=== PATIENT | female | born 1930 | race Two or more races ===

== ENCOUNTER 2019-09-12 17:27 | Inpatient (IN) | payer MEDICARE, MEDICAID ==
[~2019-09-12] VITALS: Ht 160 cm; Wt 68.5 kg
[2019-09-12] MEDS ORDERED: DIPH25CA83 PO (17:53)
[2019-09-12] MEDS ORDERED: BRIM5DRO3 EACHEYE (17:53)
[2019-09-12] MEDS ORDERED: DULO20CA PO (17:53)
[2019-09-12] MEDS ORDERED: CRAN450C PO (17:53)
[2019-09-12] MEDS ORDERED: GABA-534 PO (17:54)
[2019-09-12] MEDS ORDERED: NA P133E RC (17:54)
[2019-09-12] MEDS ORDERED: ONDA4TAB5 PO (17:54)
[2019-09-12] MEDS ORDERED: ACET-2154 PO (17:54)
[2019-09-12] MEDS ORDERED: TRAM50TA PO (17:54)
[2019-09-12] MEDS ORDERED: SITA50TA PO (17:54)
[2019-09-12] MEDS ORDERED: METF-442 PO (17:54)
[2019-09-12] MEDS ORDERED: POLY17PO4 PO (17:54)
[2019-09-12] MEDS ORDERED: TRAZ-214 PO (17:54)
[2019-09-12] MEDS ORDERED: MAGN400O6 PO (17:54)
[2019-09-12] MEDS ORDERED: INSU100V7 SQ (17:54)
[2019-09-12] MEDS ORDERED: METO25TA6 PO (17:54)
[2019-09-12 18:25] LABS: BASOPHILS # (AUTO) 0.1 K/uL (0.0-8.0); BASOPHILS % (AUTO) 0.8 % (0.0-2.0); EOSINOPHILS # (AUTO) 0.1 K/uL (0.0-0.7); EOSINOPHILS % (AUTO) 0.9 % (0.0-7.0); HEMATOCRIT 42.9 % (31.2-41.9); HEMOGLOBIN 13.9 g/dL (10.9-14.3); LYMPHOCYTES # (AUTO) 1.9 K/uL (20.0-40.0); LYMPHOCYTES % (AUTO) 29.1 % (20.5-51.5); MEAN CORPUSCULAR HEMOGLOBIN 26.3 uug (24.7-32.8); MEAN CORPUSCULAR HGB CONC 32 g/dL (32.3-35.6); MEAN CORPUSCULAR VOLUME 81.3 fL (75.5-95.3); MONOCYTES # (AUTO) 0.5 K/uL (2.0-10.0); MONOCYTES % (AUTO) 7.5 % (0.0-11.0); NEUTROPHILS % (AUTO) 61.7 % (38.5-71.5); PLATELET COUNT (AUTO) 201 K/uL (179-408); RED BLOOD CELL COUNT(AUTO) 5.28 MIL/uL (3.63-4.92); WHITE BLOOD COUNT (AUTO) 6.4 K/uL (3.8-11.8)
[2019-09-12 18:33] LABS: CARBON DIOXIDE 29 mmol/L (21-32); CHLORIDE 100 mmol/L (98-107); CREATININE 0.9 mg/dL (0.6-1.3); GLUCOSE 278 mg/dL (74-106); POTASSIUM 3.6 mmol/L (3.5-5.1); UREA NITROGEN, BLOOD 10 mg/dL (7-18)
[2019-09-12 18:45] LABS: ETHANOL < 3 MG/DL (0-0)
[2019-09-12 18:47] LABS: ACETAMINOPHEN < 2.0 ug/mL (10-30); ALANINE AMINOTRANSFERASE 11 U/L (14-59); ALKALINE PHOSPHATASE 92 U/L (50-136); ASPARTATE AMINOTRANSFERASE 8 U/L (15-37); BILIRUBIN,DIRECT 0.1 mg/dL (0.0-0.2); BILIRUBIN,TOTAL 0.3 mg/dL (0.2-1.0); TOTAL PROTEIN, SERUM 7.1 g/dL (6.4-8.2)
[2019-09-12 18:59] LABS: THYROID STIMULATING HORMONE 2.299 mIU/mL (0.358-3.740)
--- NOTE | 2019-09-12 19:50 | NUR ---
Pt. admitted to [facility] , under care of Dr. SULLIVAN/JOHN Belongs List completed.
--- NOTE | 2019-09-12 19:57 | NUR ---
REPORT GIVEN TO HÉCTOR CASAS.
[2019-09-12 21:00] VITALS: BP 141/83
[2019-09-12] MEDS ORDERED: MAGNESIUM HYDROXIDE 30 ML LIQUID UDC PO PRN ×2 (21:15→21:30)
[2019-09-12] MEDS ORDERED: FLEET ENEMA 133 ML BOTTLE RC PRN (21:30)
[2019-09-12] MEDS ORDERED: ACETAMINOPHEN 325 MG TABLET PO PRN (21:30)
[2019-09-12] MEDS: TEMAZEPAM 7.5 MG CAPSULE PO PRN (22:02)
[2019-09-13] MEDS: LORAZEPAM 0.5 MG TABLET PO PRN ×4 (00:20→20:23)
--- NOTE | 2019-09-13 01:27 | NUR ---
received to care, at 2044, from the emergency room, on a 72 hour hold for gravely disabled, a transfer from [facility]. according to the hold, she had become verbally aggressive towards peers and staff, and had to be moved to an non shared room, due to increased confusion, agitation, and threatening language. she had been refusing all her medications, and was paranoid that staff were conspiring against her. she has resided there for the last 2 years, and had only recently began to exhibit these behaviors, including refusing medications, and becoming aggressive. upon arrival on the unit, she was anxious, and confused. had no insight regarding her condition, or situation. stated she was here because "they stole my stuff". she was unable to provide history, or any meaningful information. she was given PRN restoril for insomnia, at 2201, but she refused to stay in bed, sitting in the josue chair at the nurses station. PRN ativan was given at 0. as of , she remains awake, and agitated. needs frequent redirection. will continue to monitor closely
[2019-09-13] MEDS: ONDANSETRON HCL 4 MG TABLET PO PRN (06:03)
--- NOTE | 2019-09-13 06:59 | NUR ---
pt did not sleep last night. was assisted to bed 3 times, but climbed out each time. assisted with am care, including shower. currently up in josue chair. no distress noted.
[2019-09-13 07:30] VITALS: BP 142/61
[2019-09-13] MEDS ORDERED: METFORMIN HCL 500 MG TABLET PO SCH (08:00)
[2019-09-13] MEDS: METOPROLOL TARTRATE 25 MG TABLET PO SCH ×2 (08:39→16:40)
[2019-09-13] MEDS ORDERED: Medication Not On Formulary EA (Sitagliptin Phosphate (Januvia) 50 MG) PO SCH (09:00)
[2019-09-13] MEDS: LINAGLIPTIN 5 MG TABLET PO SCH (10:04)
[2019-09-13] MEDS: ACETAMINOPHEN 325 MG TABLET PO PRN (11:25)
[2019-09-13] MEDS ORDERED: DEXTROSE 50% 50 ML DISP.SYRIN IV PRN (13:30)
[2019-09-13] MEDS: TRAMADOL HCL 50 MG TABLET PO PRN (13:47)
--- NOTE | 2019-09-13 15:29 | NUR ---
Gps/De Alcoholizer- Remains up on her josue-chair for safety,unsteady gait, patient wants to get back to bed, but noted pt. kept getting up, potential for fall, forgetful/confused , poor safety awareness.Continue to monitor closely for safety.
--- NOTE | 2019-09-13 16:29 | NUR ---
Initial Discharge Note Patient currently resides at [facility] ([address], [place] [address]; ). Patient will return to facility after discharge. JOHANNA Bell and Myke have been made aware and agreeable with plans. dish room worker will continue to work with patient, family, and MD to ensure a safe and proper discharge plan.
[2019-09-13 16:31] VITALS: BP 150/79
[2019-09-13] MEDS: BLOOD SUGAR DIAGNOSTIC 1 EACH STRIP VI SCH ×2 (16:38→20:07)
[2019-09-13] MEDS: INSULIN REGULAR, HUMAN 300 UNIT/3 ML VIAL SQ PRN ×2 (16:50→20:35)
[2019-09-13] MEDS: DIVALPROEX SPRINKLE 125 MG CAP.SPRINK PO SCH ×2 (17:09→21:29)
[2019-09-13] MEDS: BRIMONIDINE 0.2% OPHT DROP 10 ML BOTTLE EACHEYE SCH (17:10)
[2019-09-13] MEDS ORDERED: BRIMONIDINE-P 0.1% OPHTH DROP 5 ML DROPS EACHEYE SCH (18:00)
[2019-09-13 21:00] VITALS: BP 121/68
[2019-09-13] MEDS ORDERED: INSULIN GLARGINE,HUM 300 UNITS/3 ML CARTRIDGE SQ SCH (21:00)
[2019-09-13] MEDS: MIRALAX 17 GM POWD.PACK PO SCH (21:00)
--- NOTE | 2019-09-13 22:00 | NUR ---
received to care, up in josue chair, talking to self, restless, but pleasant upon approach. PRN ativan was given at 2022. as of 2199, she remains restless, but calmer. does not want to go to bed. no distress noted. will continue to monitor closely.
[2019-09-13] MEDS: TEMAZEPAM 7.5 MG CAPSULE PO PRN (23:02)
--- NOTE | 2019-09-13 23:02 | NUR ---
remains awake and restless. PRN restoril was given.
--- NOTE | 2019-09-14 00:30 | NUR ---
appears to be asleep. no distress noted.
--- NOTE | 2019-09-14 06:00 | NUR ---
slept 7.25 hours. continues to sleep. no distress noted.
[2019-09-14] MEDS: BLOOD SUGAR DIAGNOSTIC 1 EACH STRIP VI SCH ×4 (06:25→20:13)
[2019-09-14 07:30] VITALS: BP 127/70
[2019-09-14] MEDS: INSULIN REGULAR, HUMAN 300 UNIT/3 ML VIAL SQ PRN ×4 (08:12→20:25)
[2019-09-14] MEDS: LINAGLIPTIN 5 MG TABLET PO SCH (08:19)
[2019-09-14] MEDS: METOPROLOL TARTRATE 25 MG TABLET PO SCH ×2 (08:19→16:27)
[2019-09-14] MEDS: DIVALPROEX SPRINKLE 125 MG CAP.SPRINK PO SCH ×3 (08:19→20:24)
[2019-09-14] MEDS: GABAPENTIN 300 MG CAPSULE PO SCH ×2 (08:19→16:27)
--- NOTE | 2019-09-14 12:05 | NUR ---
Gps/Brush Maker- Stayed up on her josue-chair by the Nurses station . Safety reviewed and emphasized. Compliant with routine meds.safety reviewed and emphasized.
--- NOTE | 2019-09-14 14:01 | NUR ---
Gps/Breaker Operator- Timur Adler DNP in to see patient, informed of elevated blood sugar results /accu checks results , reviewed insulin orders.
--- NOTE | 2019-09-14 14:53 | NUR ---
FIREARMS REPORT: Fleet Driver completed and submitted a [employer] firearms report for 5150 grave disability certification. A copy of report has been placed in patient chart.
--- NOTE | 2019-09-14 15:59 | NUR ---
Gps/Senior International Tax Manager- Toileted , UA obtained, sent to lab.Episodes of bladder incontinence, wears diaper.
[2019-09-14] MEDS: BRIMONIDINE 0.2% OPHT DROP 10 ML BOTTLE EACHEYE SCH (16:27)
[2019-09-14 17:06] VITALS: BP 126/82
[2019-09-14 17:53] LABS: *BILIRUBIN,URIN NEGATIVE (NEGATIVE); *BLOOD, URINE NEGATIVE (NEGATIVE); *COLOR,URINE LIGHT YELLOW (YELLOW); *KETONES,URINE NEGATIVE (NEGATIVE); *UROBILINOGEN,URINE 0.2 E.U./dl (NORMAL); LEUKOCYTE ESTERASE ,URINE NEGATIVE (NEGATIVE); NITRITE, URINE NEGATIVE (NEGATIVE); PH,URINE 6.5 (5.0-8.0); UGLUCOSE NEGATIVE (NEGATIVE)
[2019-09-14 18:47] LABS: *CLARITY,URINE HAZY (CLEAR)
[2019-09-14 18:49] LABS: BACTERIA,URINE FEW /HPF (NONE SEEN); SQUAMOUS EPITHELIAL CELL,UR MODERATE /HPF (NONE SEEN); WBC,URINE 0-3 /HPF (0-3)
[2019-09-14 18:50] LABS: YEAST,URINE FEW /HPF (NONE SEEN)
[2019-09-14 20:15] VITALS: BP 124/64
[2019-09-14] MEDS: MIRALAX 17 GM POWD.PACK PO SCH (20:24)
[2019-09-14] MEDS: INSULIN GLARGINE,HUM 300 UNITS/3 ML CARTRIDGE SQ SCH (20:27)
[2019-09-14] MEDS: TEMAZEPAM 7.5 MG CAPSULE PO PRN (22:39)
[2019-09-14] MEDS: LORAZEPAM 0.5 MG TABLET PO PRN (23:45)
[2019-09-15] MEDS: TRAMADOL HCL 50 MG TABLET PO PRN (00:54)
[2019-09-15] MEDS: ONDANSETRON HCL 4 MG TABLET PO PRN (00:54)
[2019-09-15] MEDS: BLOOD SUGAR DIAGNOSTIC 1 EACH STRIP VI SCH ×4 (06:33→20:50)
[2019-09-15 07:30] VITALS: BP 114/63
[2019-09-15] MEDS: LORAZEPAM 0.5 MG TABLET PO PRN (08:29)
[2019-09-15] MEDS: METOPROLOL TARTRATE 25 MG TABLET PO SCH ×2 (08:29→17:09)
[2019-09-15] MEDS: LINAGLIPTIN 5 MG TABLET PO SCH (08:29)
[2019-09-15] MEDS: GABAPENTIN 300 MG CAPSULE PO SCH ×2 (08:29→17:09)
[2019-09-15] MEDS: DIVALPROEX SPRINKLE 125 MG CAP.SPRINK PO SCH ×3 (08:29→20:47)
[2019-09-15] MEDS: INSULIN REGULAR, HUMAN 300 UNIT/3 ML VIAL SQ PRN ×3 (09:04→17:40)
[2019-09-15 11:48] LABS: BASOPHILS # (AUTO) 0.1 K/uL (0.0-8.0); BASOPHILS % (AUTO) 0.7 % (0.0-2.0); EOSINOPHILS # (AUTO) 0.2 K/uL (0.0-0.7); EOSINOPHILS % (AUTO) 2.1 % (0.0-7.0); HEMATOCRIT 43.9 % (31.2-41.9); HEMOGLOBIN 13.7 g/dL (10.9-14.3); LYMPHOCYTES # (AUTO) 1.8 K/uL (20.0-40.0); LYMPHOCYTES % (AUTO) 22.8 % (20.5-51.5); MEAN CORPUSCULAR HEMOGLOBIN 25.7 uug (24.7-32.8); MEAN CORPUSCULAR HGB CONC 31 g/dL (32.3-35.6); MEAN CORPUSCULAR VOLUME 82.3 fL (75.5-95.3); MONOCYTES # (AUTO) 0.8 K/uL (2.0-10.0); MONOCYTES % (AUTO) 9.8 % (0.0-11.0); NEUTROPHILS % (AUTO) 64.6 % (38.5-71.5); PLATELET COUNT (AUTO) 208 K/uL (179-408); RED BLOOD CELL COUNT(AUTO) 5.33 MIL/uL (3.63-4.92); WHITE BLOOD COUNT (AUTO) 7.8 K/uL (3.8-11.8)
[2019-09-15 12:05] LABS: BILIRUBIN,TOTAL 0.3 mg/dL (0.2-1.0); CREATININE 1.1 mg/dL (0.6-1.3); POTASSIUM 4.1 mmol/L (3.5-5.1); TOTAL PROTEIN, SERUM 6.9 g/dL (6.4-8.2)
[2019-09-15 16:00] VITALS: BP 121/70
[2019-09-15] MEDS: BRIMONIDINE 0.2% OPHT DROP 10 ML BOTTLE EACHEYE SCH (17:10)
[2019-09-15 20:28] VITALS: BP 129/65
[2019-09-15] MEDS: QUETIAPINE FUMARATE 25 MG TABLET PO SCH (20:47)
[2019-09-15] MEDS: MIRALAX 17 GM POWD.PACK PO SCH (20:50)
[2019-09-15] MEDS: INSULIN REGULAR, HUMAN 300 UNITS/3 ML VIAL SQ PRN (21:00)
[2019-09-15] MEDS: INSULIN GLARGINE,HUM 300 UNITS/3 ML CARTRIDGE SQ SCH (21:08)
[2019-09-15] MEDS: TEMAZEPAM 7.5 MG CAPSULE PO PRN (22:04)
[2019-09-16] MEDS: TRAMADOL HCL 50 MG TABLET PO PRN (01:15)
[2019-09-16] MEDS: BLOOD SUGAR DIAGNOSTIC 1 EACH STRIP VI SCH ×4 (06:35→20:14)
[2019-09-16 08:29] VITALS: BP 113/63
[2019-09-16] MEDS: GABAPENTIN 300 MG CAPSULE PO SCH ×2 (10:02→17:07)
[2019-09-16] MEDS: DIVALPROEX SPRINKLE 125 MG CAP.SPRINK PO SCH ×3 (10:02→20:13)
[2019-09-16] MEDS: METOPROLOL TARTRATE 25 MG TABLET PO SCH ×2 (10:03→17:07)
[2019-09-16] MEDS: LINAGLIPTIN 5 MG TABLET PO SCH (10:03)
[2019-09-16] MEDS: INSULIN REGULAR, HUMAN 300 UNIT/3 ML VIAL SQ PRN ×2 (12:11→17:20)
[2019-09-16] MEDS: BRIMONIDINE 0.2% OPHT DROP 10 ML BOTTLE EACHEYE SCH (17:08)
[2019-09-16 18:18] VITALS: BP 133/72
--- NOTE | 2019-09-16 20:00 | NUR ---
RECEIVED PATIENT IN HER ROOM SITTING IN HER BED. SHE IS NOTED A/O X 1, FORGETFUL. SHE IS NOTED CALM UPON APPROACHED. CONTINUE WITH IMPAIRED INSIGHT AND JUDGMENT INTO HER ADMISSION TO [facility]. V/S STABLE AT THIS TIME. ACCU CHECK 213 QHS. PATIENT WAS GIVEN SNACKS. PATIENT IS REASSURED FOR HER SAFETY. SAFETY AND FALL PRECAUTION IN PLACE. WILL CONTINUE TO MONITOR,
[2019-09-16 20:13] VITALS: BP 136/77
[2019-09-16] MEDS: QUETIAPINE FUMARATE 25 MG TABLET PO SCH (20:13)
[2019-09-16] MEDS: MIRALAX 17 GM POWD.PACK PO SCH (20:13)
[2019-09-16 20:51] LABS: *BILIRUBIN,URIN NEGATIVE (NEGATIVE); *BLOOD, URINE NEGATIVE (NEGATIVE); *CLARITY,URINE CLEAR (CLEAR); *COLOR,URINE YELLOW (YELLOW); *KETONES,URINE NEGATIVE (NEGATIVE); *UROBILINOGEN,URINE 0.2 E.U./dl (NORMAL); LEUKOCYTE ESTERASE ,URINE NEGATIVE (NEGATIVE); NITRITE, URINE NEGATIVE (NEGATIVE); PH,URINE 7.5 (5.0-8.0); UGLUCOSE NEGATIVE (NEGATIVE)
[2019-09-16] MEDS: ONDANSETRON HCL 4 MG TABLET PO PRN (21:07)
--- NOTE | 2019-09-16 21:10 | NUR ---
PATIENT NOTED IRRITABLE, DEMANDING, HYPERVERBAL. SHE IS SOMEWHAT REDIRECTABLE. PATIENT ALSO C/O NAUSEA WITHOUT VOMITING. ZOFRAN 4MG PO PRN WAS GIVEN. UA WAS SENT OUT TO LAB TO R/O UTI. WILL CONTINUE TO MONITOR.
[2019-09-16] MEDS: INSULIN REGULAR, HUMAN 300 UNITS/3 ML VIAL SQ PRN (21:24)
[2019-09-16] MEDS: INSULIN GLARGINE,HUM 300 UNITS/3 ML CARTRIDGE SQ SCH (21:28)
--- NOTE | 2019-09-16 21:52 | NUR ---
UA WAS OBTAINED AND SENT OUT FOR URINALYSIS AND C/S. URINALYSIS IS NEGATIVE. WILL CONTINUE TO MONITOR.
[2019-09-16] MEDS: TEMAZEPAM 7.5 MG CAPSULE PO PRN (22:57)
--- NOTE | 2019-09-16 23:02 | NUR ---
PT CONTINUE HYPERVERBAL, EASILY IRRITABLE, SHE IS REFUSING TO STAY IN BED. TEMAZEPAM 7.5 MG PO PRN WAS GIVEN. WILL CONTINUE TO MONITOR.
[2019-09-16] MEDS ORDERED: OLANZAPINE 10 MG VIAL IM ONE (23:45)
--- NOTE | 2019-09-17 00:20 | NUR ---
PT CONTINUE IRRITABLE, YELLING, BELLIGERENT and RESTLESS. SHE WAS ALSO NOTED VERBALLY AND PHYSICALLY ABUSIVE: HITTING STAFF WHILE TRYING TO PROVIDE CARE AND ADLs CALLING NAMES. STAFF, INCLUDING THIS COVER SEAMER ATTEMPTED TO REDIRECT PATIENT; HOWEVER, INEFFECTIVE. PT WAS UNABLE TO CFS. DR SULLIVAN WAS NOTIFY AND NEW ORDER OBTAINED TO ADMINISTER ZYPREXA 3MG IM ONE TIME ORDER. ORDER WAS NOTED AND CARRIED OUT. WILL CONTINUE TO MONITOR.
--- NOTE | 2019-09-17 01:20 | NUR ---
PATIENT NOTED LESS RESTLESS, LESS AGGRESSIVE HOWEVER, SHE CONTINUE VERBALLY ABUSIVE AND UNABLE TO CFS. WE WILL CONTINUE TO MONITOR.
--- NOTE | 2019-09-17 01:45 | NUR ---
PT IS NOW IN HER BED SLEEPING COMFORTABLE. WILL CONTINUE TO MONITOR,
[2019-09-17] MEDS: BLOOD SUGAR DIAGNOSTIC 1 EACH STRIP VI SCH ×4 (06:37→20:21)
--- NOTE | 2019-09-17 06:45 | NUR ---
PATIENT WAS ABLE TO SLEEP FOR APPROX 2HRS THROUGH THE NIGHT. SHE IS NOTED CALM AND COOPERATIVE AT THIS TIME. SHE CONTINUE SLEEPING IN HER BED. ACCU CHECK IS 187. WILL CONINUE TO MONITOR.
[2019-09-17 07:30] VITALS: BP 115/50
[2019-09-17] MEDS: LORAZEPAM 0.5 MG TABLET PO PRN ×2 (08:07→21:24)
[2019-09-17] MEDS: DIVALPROEX SPRINKLE 125 MG CAP.SPRINK PO SCH (08:36)
[2019-09-17] MEDS: GABAPENTIN 300 MG CAPSULE PO SCH ×2 (08:36→16:45)
[2019-09-17] MEDS: METOPROLOL TARTRATE 25 MG TABLET PO SCH ×2 (08:36→16:46)
[2019-09-17] MEDS: LINAGLIPTIN 5 MG TABLET PO SCH (08:38)
[2019-09-17] MEDS: INSULIN REGULAR, HUMAN 300 UNIT/3 ML VIAL SQ PRN ×2 (09:03→16:49)
[2019-09-17] MEDS ORDERED: OLANZAPINE 2.5 MG TABLET PO PRN (12:15)
[2019-09-17 12:49] LABS: BASOPHILS % (AUTO) 0.4 % (0.0-2.0); EOSINOPHILS # (AUTO) 0.1 K/uL (0.0-0.7); EOSINOPHILS % (AUTO) 1.6 % (0.0-7.0); HEMATOCRIT 43.8 % (31.2-41.9); HEMOGLOBIN 13.9 g/dL (10.9-14.3); LYMPHOCYTES # (AUTO) 1.6 K/uL (20.0-40.0); LYMPHOCYTES % (AUTO) 17.6 % (20.5-51.5); MEAN CORPUSCULAR HEMOGLOBIN 25.7 uug (24.7-32.8); MEAN CORPUSCULAR HGB CONC 32 g/dL (32.3-35.6); MEAN CORPUSCULAR VOLUME 81.1 fL (75.5-95.3); MONOCYTES # (AUTO) 0.8 K/uL (2.0-10.0); MONOCYTES % (AUTO) 8.8 % (0.0-11.0); NEUTROPHILS # (AUTO) 6.6 K/uL (1.8-8.9); NEUTROPHILS % (AUTO) 71.6 % (38.5-71.5); PLATELET COUNT (AUTO) 222 K/uL (179-408); WHITE BLOOD COUNT (AUTO) 9.3 K/uL (3.8-11.8)
[2019-09-17 12:53] LABS: CREATININE 0.9 mg/dL (0.6-1.3); POTASSIUM 4.4 mmol/L (3.5-5.1)
[2019-09-17 12:58] LABS: BILIRUBIN,TOTAL 0.3 mg/dL (0.2-1.0); TOTAL PROTEIN, SERUM 6.6 g/dL (6.4-8.2)
[2019-09-17 15:37] VITALS: BP 111/64
[2019-09-17] MEDS: OLANZAPINE 2.5 MG TABLET PO SCH (16:45)
[2019-09-17] MEDS: BRIMONIDINE 0.2% OPHT DROP 10 ML BOTTLE EACHEYE SCH (17:12)
[2019-09-17] MEDS: MAG HYDROX/AL HYDROX/SIMETH 30 ML LIQUID UDC PO PRN (18:35)
[2019-09-17 20:00] VITALS: BP 131/65
[2019-09-17] MEDS ORDERED: OLANZAPINE 2.5 MG TABLET PO SCH (20:00)
[2019-09-17] MEDS: TRAMADOL HCL 50 MG TABLET PO PRN (20:07)
[2019-09-17] MEDS: MIRALAX 17 GM POWD.PACK PO SCH (20:14)
[2019-09-17] MEDS: INSULIN GLARGINE,HUM 300 UNITS/3 ML CARTRIDGE SQ SCH (20:21)
[2019-09-17] MEDS: INSULIN REGULAR, HUMAN 300 UNITS/3 ML VIAL SQ PRN (20:23)
[2019-09-17] MEDS: TEMAZEPAM 7.5 MG CAPSULE PO PRN (23:10)
[2019-09-18] MEDS: BLOOD SUGAR DIAGNOSTIC 1 EACH STRIP VI SCH ×4 (06:40→20:44)
[2019-09-18 07:30] VITALS: BP 144/79
[2019-09-18] MEDS: GABAPENTIN 300 MG CAPSULE PO SCH ×2 (09:04→17:19)
[2019-09-18] MEDS: METOPROLOL TARTRATE 25 MG TABLET PO SCH ×2 (09:05→17:19)
[2019-09-18] MEDS: LINAGLIPTIN 5 MG TABLET PO SCH (09:05)
[2019-09-18] MEDS: OLANZAPINE 2.5 MG TABLET PO SCH ×2 (09:05→17:19)
[2019-09-18] MEDS: INSULIN REGULAR, HUMAN 300 UNIT/3 ML VIAL SQ PRN ×3 (09:06→17:19)
[2019-09-18 15:30] VITALS: BP 120/63
[2019-09-18] MEDS: MAG HYDROX/AL HYDROX/SIMETH 30 ML LIQUID UDC PO PRN (17:04)
[2019-09-18] MEDS: BRIMONIDINE 0.2% OPHT DROP 10 ML BOTTLE EACHEYE SCH (17:20)
[2019-09-18] MEDS ORDERED: OLANZAPINE 2.5 MG TABLET PO SCH (20:00)
[2019-09-18 20:26] VITALS: BP 157/73
[2019-09-18] MEDS: TRAMADOL HCL 50 MG TABLET PO PRN (20:41)
[2019-09-18] MEDS: LORAZEPAM 0.5 MG TABLET PO PRN (20:43)
[2019-09-18] MEDS: INSULIN GLARGINE,HUM 300 UNITS/3 ML CARTRIDGE SQ SCH (20:47)
[2019-09-18] MEDS: MIRALAX 17 GM POWD.PACK PO SCH (20:47)
[2019-09-18] MEDS: INSULIN REGULAR, HUMAN 300 UNITS/3 ML VIAL SQ PRN (20:52)
[2019-09-18] MEDS: TEMAZEPAM 7.5 MG CAPSULE PO PRN (23:08)
[2019-09-18] MEDS: ONDANSETRON HCL 4 MG TABLET PO PRN (23:09)
--- NOTE | 2019-09-19 05:36 | NUR ---
Patient slept in bed 5.15 hours and is still in bed asleep. First part of the night in josue chair eating and reading magazines. Medicated for pain one time. Patient still confused and needs redirection. Continuing to monitor for safety, no distress noted.
[2019-09-19] MEDS: BLOOD SUGAR DIAGNOSTIC 1 EACH STRIP VI SCH ×4 (06:14→20:48)
[2019-09-19] MEDS: LINAGLIPTIN 5 MG TABLET PO SCH (07:47)
[2019-09-19 07:48] VITALS: BP 129/65
[2019-09-19] MEDS: OLANZAPINE 2.5 MG TABLET PO SCH ×2 (08:12→16:20)
[2019-09-19] MEDS: METOPROLOL TARTRATE 25 MG TABLET PO SCH ×2 (08:13→16:20)
[2019-09-19] MEDS: GABAPENTIN 300 MG CAPSULE PO SCH ×2 (08:13→16:20)
[2019-09-19] MEDS: INSULIN REGULAR, HUMAN 300 UNIT/3 ML VIAL SQ PRN ×2 (11:58→16:31)
[2019-09-19] MEDS: TRAMADOL HCL 50 MG TABLET PO PRN (14:36)
[2019-09-19 16:24] VITALS: BP 110/63
--- NOTE | 2019-09-19 16:50 | NUR ---
patient AOx1, confused, however redirectable, patient compliant with medication with prompting, patient engaged with good conversation, needs assist in ambulation, on fall risk precaution, will continue monitor
[2019-09-19] MEDS: BRIMONIDINE 0.2% OPHT DROP 10 ML BOTTLE EACHEYE SCH (17:19)
[2019-09-19] MEDS: LORAZEPAM 0.5 MG TABLET PO PRN (19:32)
[2019-09-19] MEDS ORDERED: OLANZAPINE 2.5 MG TABLET PO SCH (20:00)
[2019-09-19 20:18] VITALS: BP 138/65
[2019-09-19] MEDS: MIRALAX 17 GM POWD.PACK PO SCH (20:28)
[2019-09-19] MEDS: OLANZAPINE 5 MG TABLET PO SCH (20:28)
[2019-09-19] MEDS: ONDANSETRON HCL 4 MG TABLET PO PRN (20:35)
[2019-09-19] MEDS: INSULIN REGULAR, HUMAN 300 UNITS/3 ML VIAL SQ PRN (20:44)
[2019-09-19] MEDS: INSULIN GLARGINE,HUM 300 UNITS/3 ML CARTRIDGE SQ SCH (20:45)
[2019-09-19] MEDS: TEMAZEPAM 7.5 MG CAPSULE PO PRN (21:55)
[2019-09-20] MEDS: BLOOD SUGAR DIAGNOSTIC 1 EACH STRIP VI SCH ×4 (06:55→21:22)
[2019-09-20 07:30] VITALS: BP 117/50
[2019-09-20] MEDS: OLANZAPINE 2.5 MG TABLET PO SCH ×2 (08:48→16:48)
[2019-09-20] MEDS: GABAPENTIN 300 MG CAPSULE PO SCH ×2 (08:48→16:48)
[2019-09-20] MEDS: METOPROLOL TARTRATE 25 MG TABLET PO SCH ×2 (08:49→16:33)
[2019-09-20] MEDS: INSULIN REGULAR, HUMAN 300 UNIT/3 ML VIAL SQ PRN ×3 (08:51→16:53)
[2019-09-20] MEDS: LINAGLIPTIN 5 MG TABLET PO SCH (08:58)
--- NOTE | 2019-09-20 11:00 | NUR ---
Pt got agitated and refusing to follow directions. She started to get out of the gerochair. Medicated with Ativan 0.5mg orally for her agitation.
[2019-09-20] MEDS: LORAZEPAM 0.5 MG TABLET PO PRN ×2 (11:20→20:51)
--- NOTE | 2019-09-20 11:24 | NUR ---
Discharge Planning ASHLYN Note: ASHLYN spoke with Amita (Admin Coordinator) at [facility] ([address], [place] [address]; ) who states that they would like SW to seek a locked facility for the patient for placement, and if unable to then they will accept the patient back at [facility].
--- NOTE | 2019-09-20 11:30 | NUR ---
Pt started falling asleep on the chair and remains calm.
--- NOTE | 2019-09-20 11:53 | NUR ---
Discharge Planning SW Note: SW faxed a referral packet to [facility] ( ; ) attention to Or[place], and waiting for notice if patient will be accepted to facility.
[2019-09-20 16:00] VITALS: BP 108/58
--- NOTE | 2019-09-20 17:30 | NUR ---
Pt is eating well independently in the [facility].
[2019-09-20] MEDS: BRIMONIDINE 0.2% OPHT DROP 10 ML BOTTLE EACHEYE SCH (17:50)
--- NOTE | 2019-09-20 19:20 | NUR ---
RECEIVED PT IN GERICHAIR. PT CONFUSED AND RESTLESS. NEEDS REORIENTATION. PT IN NO ACUTE DISTRESS. SAFETY AND COMFORT PROVIDED. WILL CONTINUE TO MONITOR.
[2019-09-20] MEDS: OLANZAPINE 5 MG TABLET PO SCH (20:05)
[2019-09-20] MEDS: MIRALAX 17 GM POWD.PACK PO SCH (20:06)
[2019-09-20 20:56] VITALS: BP 127/68
[2019-09-20] MEDS: INSULIN REGULAR, HUMAN 300 UNITS/3 ML VIAL SQ PRN (21:24)
[2019-09-20] MEDS: INSULIN GLARGINE,HUM 300 UNITS/3 ML CARTRIDGE SQ SCH (21:36)
[2019-09-20] MEDS: TEMAZEPAM 7.5 MG CAPSULE PO PRN (22:51)
[2019-09-20] MEDS: ACETAMINOPHEN 325 MG TABLET PO PRN (22:51)
--- NOTE | 2019-09-21 05:25 | NUR ---
PT BED ALARM WAS ALARMING. REACH THE PT PROMPTLY. PT ATTEMPTING TO WALK, PANTS WERE DOWN AND GOING TO THE BATHROOM.PT IS ABOUT TO FALL AND I ASSISTED HER WHEN SHE WAS ABOUT TO FALL ON THE FLOOR. SKIN ASSESSMENT AND BODY CHECK DONE. CHECK MOBILITIES OF EXTREMITIES. VITAL SIGNS DONE. WOUND DRESSING DONE. WILL CONTINUE TO MONITOR.
--- NOTE | 2019-09-21 05:35 | NUR ---
PRODUCTION ASSEMBLER WAS NOTIFY OF PATIENT FALLS. WILL CONTINUE TO MONITOR.
--- NOTE | 2019-09-21 05:40 | NUR ---
LEFT MESSAGE TO VERNON XIAO ACNP. RE: PATIENT'S FALL. WILL CONTINUE TO MONITOR.
--- NOTE | 2019-09-21 05:45 | NUR ---
RECEIVED A CALL BACK FROM VERNON XIAO ACNP RE: PATIENT'S FALL. OBTAINED NEW ORDER TO DO LEFT ELBOW X RAY LIMITED. ORDER WAS NOTED. WILL CONTINUE TO MONITOR. TAT
--- NOTE | 2019-09-21 06:55 | NUR ---
LEFT ELBOW X RAY WAS TAKEN. WILL CONTINUE TO MONITOR,
--- NOTE | 2019-09-21 07:05 | NUR ---
PT SLEPT 5.15 HOURS. STATUS POST FALL. PT SHOWS NO SIGNS OF ACUTE DISTRESS. XRAY OF LEFT ELBOW DONE. SAFETY AND COMFORT PROVIDED. WILL ENDORSE TO INCOMING NURSE FOR CONTINUITY OF CARE.
[2019-09-21] MEDS: BLOOD SUGAR DIAGNOSTIC 1 EACH STRIP VI SCH ×4 (07:11→20:03)
--- NOTE | 2019-09-21 07:15 | NUR ---
DR SULLIVAN WAS NOTIFY OF PATIENT'S FALL. OBTAINED NEW ORDER TO GIVEN DEPAKOTE 250MG AT 1999. ORDER NOTED. RECEIVED X RAY RESULTS" NO FRACTURED. WILL CONTINUE TO MONITOR.
[2019-09-21 07:30] VITALS: BP 117/59
--- NOTE | 2019-09-21 08:15 | NUR ---
LEFT MESSAGE TO SHAWN OWUSU AT [phone] RE: PATIENT'S FALL. WILL CONTINUE TO MONITOR.
[2019-09-21] MEDS: METOPROLOL TARTRATE 25 MG TABLET PO SCH ×2 (09:17→17:33)
[2019-09-21] MEDS: LINAGLIPTIN 5 MG TABLET PO SCH (09:17)
[2019-09-21] MEDS: GABAPENTIN 300 MG CAPSULE PO SCH ×2 (09:18→17:33)
[2019-09-21] MEDS: OLANZAPINE 2.5 MG TABLET PO SCH ×2 (09:18→17:33)
[2019-09-21] MEDS: INSULIN REGULAR, HUMAN 300 UNIT/3 ML VIAL SQ PRN ×3 (12:46→20:26)
[2019-09-21 15:29] VITALS: BP 121/62
[2019-09-21] MEDS: BRIMONIDINE 0.2% OPHT DROP 10 ML BOTTLE EACHEYE SCH (17:34)
--- NOTE | 2019-09-21 20:00 | NUR ---
Patient received into care, sitting up in gerichair in hallway. Patient is alert/oriented x2 and has no complaints of pain or discomfort at this time. All safety and fall precaution measures are in place. Will continue to monitor.
[2019-09-21] MEDS: MIRALAX 17 GM POWD.PACK PO SCH (20:23)
[2019-09-21] MEDS: OLANZAPINE 5 MG TABLET PO SCH (20:24)
[2019-09-21] MEDS: DIVALPROEX 250 MG TABLET.DR PO SCH (20:24)
[2019-09-21] MEDS: INSULIN GLARGINE,HUM 300 UNITS/3 ML CARTRIDGE SQ SCH (20:25)
[2019-09-21] MEDS: LORAZEPAM 0.5 MG TABLET PO PRN (21:17)
[2019-09-21] MEDS: ACETAMINOPHEN 325 MG TABLET PO PRN (23:10)
[2019-09-21] MEDS: TEMAZEPAM 7.5 MG CAPSULE PO PRN (23:10)
[2019-09-22] MEDS: LORAZEPAM 0.5 MG TABLET PO PRN ×2 (02:22→20:02)
[2019-09-22] MEDS: BLOOD SUGAR DIAGNOSTIC 1 EACH STRIP VI SCH ×4 (05:56→20:03)
--- NOTE | 2019-09-22 07:06 | NUR ---
Patient slept zero hours this shift. Attempts to alleviate insomnia, including a quiet environment and prescribed restoril @ 7.5 mg, were ineffective. Patient was compliant with all aspects of care, including medicine regimen. All safety and fall precaution measures remain in place.
[2019-09-22 07:30] VITALS: BP 125/77
--- NOTE | 2019-09-22 07:30 | NUR ---
Recieved pt sitting on a gerochair, very fidgitty, awake, disoriented to time and place.Speaks bulgarian most of the time. Verbally responsive. Moves all extremeties but unsteady on her gait.
[2019-09-22] MEDS: OLANZAPINE 2.5 MG TABLET PO SCH (08:41)
[2019-09-22] MEDS: LINAGLIPTIN 5 MG TABLET PO SCH (08:41)
[2019-09-22] MEDS: METOPROLOL TARTRATE 25 MG TABLET PO SCH ×2 (08:43→17:21)
[2019-09-22] MEDS: INSULIN REGULAR, HUMAN 300 UNIT/3 ML VIAL SQ PRN ×3 (08:45→17:07)
[2019-09-22] MEDS: GABAPENTIN 300 MG CAPSULE PO SCH ×2 (08:50→17:20)
--- NOTE | 2019-09-22 09:30 | NUR ---
Pt ate her breakfast well. Able to feed herself.
--- NOTE | 2019-09-22 11:30 | NUR ---
Pt is in full safety measures. Managed to crawl herself down the gerochair. Dr Siu is present and aware. No injury noted.
[2019-09-22] MEDS ORDERED: OLANZAPINE 10 MG VIAL IM ONE (12:00)
--- NOTE | 2019-09-22 12:20 | NUR ---
PT IS CURRENTLY SITTING IN HERB-CHAIR AT THIS TIME. CONFUSED, AGITATED, AND EASILY IRRITABLE. NOTED TALKING TO SELF AT THIS TIME. PT FREQUENTLY ATTEMPTING TO GET OUT OF CHAIR, SCRATCHING NURSE, COMBATIVE. DR. FORD IS PRESENT AT THIS TIME AND WITNESSED PT'S BEHAVIOR, AND ORDERED ZYPREXA 10MG IM X1. NOTED AND CARRIED OUT.
--- NOTE | 2019-09-22 15:00 | NUR ---
Pt stayed quite and able to fall asleep. No apparent respiratory distress noted.
[2019-09-22 15:18] VITALS: BP 152/77
[2019-09-22] MEDS ORDERED: OLANZAPINE 2.5 MG TABLET PO SCH (17:00)
[2019-09-22] MEDS: OLANZAPINE 5 MG TABLET PO SCH ×2 (17:20→20:02)
[2019-09-22] MEDS: BRIMONIDINE 0.2% OPHT DROP 10 ML BOTTLE EACHEYE SCH (17:29)
--- NOTE | 2019-09-22 18:00 | NUR ---
More calm and compliant.
[2019-09-22] MEDS: DIVALPROEX 250 MG TABLET.DR PO SCH (20:02)
[2019-09-22] MEDS: MIRALAX 17 GM POWD.PACK PO SCH (20:03)
[2019-09-22] MEDS: INSULIN GLARGINE,HUM 300 UNITS/3 ML CARTRIDGE SQ SCH (20:23)
[2019-09-22 23:25] VITALS: BP 121/71
--- NOTE | 2019-09-23 06:01 | NUR ---
Patient slept 7.30 hours in the bed last night. Sill in bed resting at this time . No distress noted.
[2019-09-23] MEDS: BLOOD SUGAR DIAGNOSTIC 1 EACH STRIP VI SCH ×4 (06:07→20:14)
[2019-09-23 07:30] VITALS: BP 156/54
--- NOTE | 2019-09-23 11:25 | NUR ---
Pt just woke up from the bed, assisted with her shower and has a good BM. Pt ate late breakfast, still very sleepy. Took her morning medications laate but very compliant.
[2019-09-23] MEDS: LINAGLIPTIN 5 MG TABLET PO SCH (11:26)
[2019-09-23] MEDS: GABAPENTIN 300 MG CAPSULE PO SCH ×2 (11:27→17:33)
[2019-09-23] MEDS: METOPROLOL TARTRATE 25 MG TABLET PO SCH ×2 (11:27→17:34)
[2019-09-23] MEDS: OLANZAPINE 5 MG TABLET PO SCH ×3 (11:27→20:12)
[2019-09-23] MEDS: INSULIN REGULAR, HUMAN 300 UNIT/3 ML VIAL SQ PRN ×2 (12:25→17:02)
--- NOTE | 2019-09-23 14:00 | NUR ---
Sleeping on the chair most of the afternoon. Remains quite.
[2019-09-23 16:00] VITALS: BP 100/57
[2019-09-23] MEDS: BRIMONIDINE 0.2% OPHT DROP 10 ML BOTTLE EACHEYE SCH (17:35)
[2019-09-23 20:00] VITALS: BP 93/49
[2019-09-23] MEDS ORDERED: DIVALPROEX 250 MG TABLET.DR PO SCH (20:00)
[2019-09-23] MEDS ORDERED: DIVALPROEX 500 MG TABLET.DR PO SCH (20:00)
[2019-09-23] MEDS: ONDANSETRON HCL 4 MG TABLET PO PRN (20:12)
[2019-09-23] MEDS: TRAMADOL HCL 50 MG TABLET PO PRN (20:13)
[2019-09-23] MEDS: MIRALAX 17 GM POWD.PACK PO SCH (20:15)
[2019-09-23] MEDS: INSULIN REGULAR, HUMAN 300 UNITS/3 ML VIAL SQ PRN (20:22)
[2019-09-23] MEDS: INSULIN GLARGINE,HUM 300 UNITS/3 ML CARTRIDGE SQ SCH (20:23)
[2019-09-23] MEDS: LORAZEPAM 0.5 MG TABLET PO PRN (23:22)
[2019-09-24] MEDS: BLOOD SUGAR DIAGNOSTIC 1 EACH STRIP VI SCH ×2 (06:34→11:28)
[2019-09-24 07:30] VITALS: BP 123/52
[2019-09-24] MEDS: LINAGLIPTIN 5 MG TABLET PO SCH (08:08)
[2019-09-24] MEDS: GABAPENTIN 300 MG CAPSULE PO SCH (08:08)
[2019-09-24] MEDS: OLANZAPINE 5 MG TABLET PO SCH (08:08)
[2019-09-24 08:09] VITALS: BP 123/52
[2019-09-24] MEDS: METOPROLOL TARTRATE 25 MG TABLET PO SCH (08:09)
--- NOTE | 2019-09-24 08:44 | NUR ---
Patient will be discharged to [facility] [[address] [place] [address]; ]. Please arrange transportation for patient at 12:00am via ambulance. Spoke with Carlin Rojas [Admin Coordinator] at the facility who states they are ready to accept the patient today. Patient is aware and agreeable with discharge plans. Patient is alert and oriented x3-4, is able to plan for self-care, and denies any suicidal or homicidal ideations. Lupillo Bell, patients daughter [[phone]] is aware and agreeable with discharge plans. Patient will follow-up at the facility with Dr. Almanza (Psychiatrist) and Dr. Page (Sludge Mill Operator). Authorization Representative faxed discharge packet to [facility]. Patient was provided with outpatient mental health resources to [facility] Crisis Line , and the [place] Suicide Prevention Lifeline . Pt presents with congruent mood during discharge. Addendum: 09/25/19 at 1003 by CARLYN GOLDBERG DISCHARGE NOTE: Patient will be discharged to [facility] [[address] [place] [address]; ]. Please arrange transportation for patient at 12:00am via ambulance. Spoke with Carlin Rojas [Admin Coordinator] at the facility who states they are ready to accept the patient today. Patient is aware and agreeable with discharge plans. Patient is alert and oriented x3-4, is able to plan for self-care, and denies any suicidal or homicidal ideations. Lupillo Bell, patients daughter [[phone]] is aware and agreeable with discharge plans. Patient will follow-up at the facility with Dr. Almanza (Psychiatrist) and Dr. Page (Sludge Mill Operator). Authorization Representative faxed discharge packet to [facility]. Patient was provided with outpatient mental health resources to [facility] , and the National Suicide Prevention Lifeline . Pt presents with congruent mood during discharge.
--- NOTE | 2019-09-24 10:13 | NUR ---
GPS: RECEIVED PATIENT AOXX1-2, PATIENT CALM AND COOPERATIVE, COMPLIANT WITH MEDICATION, AMBULATORY WITH ASSIST , PATIENT AGREED WITH DISCHARGE , WILL BE GOING TO [facility], GAVE REPORT TO YOSSI BARAKAT AND FAX OVER MEDICATION LIST REQUESTED, PATIENT REMAIN CALM DURING THE SHIFT , ARRANGE TRANSPORTATION WILL CONTINUE MONITOR
[2019-09-24] MEDS: INSULIN REGULAR, HUMAN 300 UNIT/3 ML VIAL SQ PRN (11:30)
--- NOTE | 2019-09-24 12:40 | NUR ---
transfered to [facility], with [facility] wnl
== END 2019-09-24 12:15 | DRG 885 ==
LOC: ER 17:30 → GPS 20:12
PROVIDERS: ADMIT Psychiatry & Neurology Psychosomatic Medicine; ATTEND Hospitalist
DX: F25.0 Schizoaffective disorder, bipolar type (principal); F01.50 Vascular dementia, unspecified severity, without behavioral disturbance, psychotic disturbance, mood disturbance, and anxiety; E11.65 Type 2 diabetes mellitus with hyperglycemia; E44.1 Mild protein-calorie malnutrition; J98.11 Atelectasis; I48.91 Unspecified atrial fibrillation; E78.5 Hyperlipidemia, unspecified; Z68.26 Body mass index [BMI] 26.0-26.9, adult; I25.10 Atherosclerotic heart disease of native coronary artery without angina pectoris; K21.9 Gastro-esophageal reflux disease without esophagitis; Z79.4 Long term (current) use of insulin; Z95.0 Presence of cardiac pacemaker; Z95.2 Presence of prosthetic heart valve; F41.9 Anxiety disorder, unspecified
CPT/HCPCS: 36415; 70030-TC; 71045; 73070; 80164; 84443; 85025; 85730; 87086; 93005; A4663; G0480; G0480-TC; J1815; J2358; J3490; Q0162